=== PATIENT | male | born 1965 | race African-American/Black ===

== ENCOUNTER 2021-08-05 08:37 | Emergency (ER) | payer OTHER, SELFPAY ==
[2021-08-05 08:41] VITALS: BP 189/112; PULSE 106; RESP 20; TEMP 37; O2SAT 95
[2021-08-05 10:05] LABS: Influenza A QL RT-PCR Negative (Negative); Influenza B QL RT-PCR Negative (Negative); SARS-CoV-2 RNA PCR Negative
--- NOTE | 2021-08-05 10:17 | ED.GENADULT ---
HPI - General Adult General Chief complaint: Upper Respiratory Infection Stated complaint: congestion, sore throat Time Seen by Provider: 08/05/21 08:47 History of Present Illness HPI narrative: 56 male presented to the emergency department for evaluation of nasal congestion, and sore throat. Patient states symptoms that began approximately Friday. Patient states symptoms are worsened after he had some fried fish. Patient felt that the fried fish was abrasive. Patient has been trying [id number] medications without significant improvement. Patient does have postnasal drip and sore throat. Patient denies any associated chest pain or shortness of breath. Patient denies any nausea vomiting or diarrhea. Review of Systems Review of Systems: CONSTITUTIONAL: Denies fever, chills, or sweats. EYES: Denies visual changes, redness, or discharge. ENT: See HPI CARDIOVASCULAR: Denies chest pain, palpitations, or edema. RESPIRATORY: Denies cough or dyspnea. GASTROINTESTINAL: Denies abdominal pain, nausea, vomiting, or diarrhea. GENITOURINARY: Denies dysuria or hematuria. SKIN: Denies rash or itching. MUSCULOSKELETAL: Denies back pain, joint pain, or myalgia. NEUROLOGIC: Denies headache, numbness, or weakness. Exam Narrative: APPEARANCE: Well appearing, no pain, no distress, well-nourished. HEAD: normocephalic, atraumatic. EYES: PERRLA/EOMI, conjunctivae clear. NOSE: Nasal congestion EARS:TMS clear with good light reflex. THROAT: Mucous tonsils, no exudate, normal posterior pharynx. NECK: Supple. No edema, mild lymphadenopathy. RESPIRATORY: Airway patent, respirations nonlabored. Clear to auscultation bilaterally, no rales, rhonchi, wheezing. CARDIOVASCULAR: Regular rate and rhythm without murmurs rubs or gallops. MUSCULOSKELETAL: Moves all extremities. SKIN: Warm, dry. Normal Color Course Course Emergency Course: Patient had negative strep, negative COVID and negative influenza. Patient was updated on the results of these. Patient was also informed on the pending strep culture. Patient was educated on symptomatic treatment for home. All questions and concerns were addressed. Vital Signs Vital signs: Vital Signs Temperature 98.6 F 08/05/21 08:41 Pulse Rate 106 H 08/05/21 08:41 Respiratory Rate 20 08/05/21 08:41 Blood Pressure 189/112 H 08/05/21 08:41 Pulse Oximetry 95 08/05/21 08:41 Oxygen Delivery Room Air 08/05/21 08:41 Temperature 98.6 F 08/05/21 08:41 Pulse Rate 106 H 08/05/21 08:41 Respiratory Rate 20 08/05/21 08:41 Blood Pressure 189/112 H 08/05/21 08:41 Pulse Oximetry 95 08/05/21 08:41 Oxygen Delivery Room Air 08/05/21 08:41 Medical Decision Making Vital Signs Vital Signs: Vital Signs Temperature 98.6 F 08/05/21 08:41 Pulse Rate 106 H 08/05/21 08:41 Respiratory Rate 20 08/05/21 08:41 Blood Pressure 189/112 H 08/05/21 08:41 Pulse Oximetry 95 08/05/21 08:41 Oxygen Delivery Room Air 08/05/21 08:41 Temperature 98.6 F 08/05/21 08:41 Pulse Rate 106 H 08/05/21 08:41 Respiratory Rate 20 08/05/21 08:41 Blood Pressure 189/112 H 08/05/21 08:41 Pulse Oximetry 95 08/05/21 08:41 Oxygen Delivery Room Air 08/05/21 08:41 Lab Data Labs: Lab Results 08/05/21 Range/Units 09:07 Influenza A (RT-PCR) Negative (Negative) Influenza B (RT-PCR) Negative (Negative) SARS-CoV-2 RNA (RT-PCR) Negative Strep Screen Presumptive Negative *(Reference Range: Negative)* Discharge Plan Discharge Clinical Impression: Acute sore throat Patient Disposition: Home, Self-Care Condition: Stable Instructions: Antibiotic Form, Pharyngitis (ED) Additional Instructions: Symptomatic treatment as directed. Have close follow-up with your primary care physician. Follow-up/Referrals: PHYSICIAN NOT ON STAFF,NONSTAFF [Primary Care Provider] -
== END 2021-08-05 10:25 | disposition home or self-care (01) ==
PROVIDERS: Emergency Provider Emergency Medicine
DX: J02.9 Acute pharyngitis, unspecified (principal); Z20.822 Contact with and (suspected) exposure to COVID-19
CPT/HCPCS: 87081; 87502; 87880; 99283; C9803; U0003; U0005

== ENCOUNTER 2022-05-06 15:31 | Outpatient (CLI) | payer OTHER, SELFPAY ==
--- NOTE | ~2022-05-06 | CT_ITS ---
EXAMINATION: CT lung screening DATE: 05/06/2022 15:53 INDICATION: HX OF NICOTINE DEPENDENCE TECHNIQUE: Computed tomography (CT) of the chest was performed without intravenous contrast. Addition al 3D reconstructions utilizing coronal maximum intensity projection (MIP) were performed. Automated exposure control and iterative reconstruction technique were employed. The dose-length product was 28 4.04 mGy-cm. COMPARISON: None FINDINGS: Expected for millimeter pleural-based nodule at the posterior medial right lower lobe. 3 mm left lowe r lobe nodule. No pneumonia, pulmonary edema, pleural effusion or pneumothorax. Heart size is normal. Atherosclerotic coronary artery calcific lesions. No pericardial effusion. Thoracic aorta is normal in caliber. No pathologically enlarged thoracic lymphadenopathy. Minimal bilateral gynecomastia. Mild thoracic dextrocurvature with moderate spondylosis. IMPRESSION: 1. Lung-RADS category 2: Benign appearance or behavior. Continue annual screening with noncontrast lo w-dose chest CT in 12 months. Reviewed, dictated and finalized at [facility]. IAL PROCEDURES TECH IMPRESSION: 1. Lung-RADS category 2: Benign appearance or behavior. Continue annual screeni ng with noncontrast low-dose chest CT in 12 months.
== END 2022-05-06 15:32 | disposition home or self-care (01) ==
DX: Z12.2 Encounter for screening for malignant neoplasm of respiratory organs (principal); Z87.891 Personal history of nicotine dependence
CPT/HCPCS: 71271

== ENCOUNTER 2022-10-31 01:36 | Day surgery (SDC) | payer OTHER, SELFPAY ==
[2022-10-23 16:03] VITALS: BMI 32.3
[2022-10-31 12:04] VITALS: BP 147/102; PULSE 80; RESP 16; TEMP 36.4; O2SAT 97; BMI 32.1
--- NOTE | 2022-10-31 12:12 | WPDANESEPPF ---
Anes - Initial Pre Proc Eval Procedure: Operation Date: 10/31/22 13:00 Proposed Procedures p Colonoscopy - Adeel Bonds MD Date/Time: 10/31/22 12:12 Surgeon: Adeel Bonds MD Pre Op Diagnosis: other fecal abnormalities Patient Data Age: 57 Gender: M Height: 1.8 m Weight: 104.7 kg Last Vital Signs Temp 97.6 F 10/31/22 12:04 Pulse 80 10/31/22 12:04 Resp 16 10/31/22 12:04 BP 147/102 H 10/31/22 12:04 Pulse Ox 97 10/31/22 12:04 O2 Del Method Room Air 10/31/22 12:04 Allergies Allergy/AdvReac Type Severity Reaction Status Date / Time naproxen Allergy Intermediate Hypertensio Verified 10/31/22 12:03 n Home Medications Medication Instructions Recorded Confirmed Type amlodipine 5 mg tablet 5 mg PO DAILY 10/23/22 10/31/22 History cyclobenzaprine 10 mg tablet 10 mg PO TID PRN Spasms 10/23/22 10/31/22 History Patient hx anesthesia problems: none Family hx anesthesia problems: none Results Review: All pre-operative results and documents have been reviewed as part of the pre-operative evaluation. [facility] Social History Social History Smoking packs per day: 1 Smoking cigarettes per day: 20.0 Years smoked: 31 Smoking pack-years: 31.00 Smoking status: Current every day smoker Tobacco type: cigarettes and e-cigarettes/vaping Additional smoking assessment comments: QUIT SMOKING 2020, CURRENTLY VAPES Alcohol intake: current Substance use: never Substance use type: does not use Living arrangements: with family Spiritual care concerns: No Anes - Eval Final PreProcedure Day of Procedure 10/31/22 12:12 Patient weight: obese Heart: regular rate and rhythm Lungs: clear to auscultation Airway: Mallampati scale class II Neurological: alert and oriented Last oral intake: >/= 8 hours ASA classification: II Emergent: no Anesthetic plan: proceed Anesthesia type and monitoring: general GIVS and standard monitoring Results Review: All pre-operative results and documents have been reviewed as part of the pre-operative evaluation. Informed Consent: The patient's anesthetic plan and its attendant risks and benefits were discussed with the patient/family/POA. Questions were solicited and answers provided to the satisfaction of the patient/family/POA.
[2022-10-31] MEDS: LACTATED RINGERS 1,000 ML 150 ML IV CONT (12:20)
--- NOTE | 2022-10-31 12:53 | PM.HPGS ---
History of Present Illness History of Present Illness Consent: Risks, benefits, and alternatives have been discussed and questions answered. Patient agrees to proceed with procedure. Chief complaint: other fecal abnormalities Narrative: Jacob Gomez is a 57 year old male Who was referred for colon cancer screening. He recently performed a Cologuard test which was positive. Review of Systems Review of Systems: All systems reviewed & are unremarkable except as noted in HPI and below PMFSH Social History Social History Smoking packs per day: 1 Smoking cigarettes per day: 20.0 Years smoked: 31 Smoking pack-years: 31.00 Smoking status: Current every day smoker Tobacco type: cigarettes and e-cigarettes/vaping Additional smoking assessment comments: QUIT SMOKING 2020, CURRENTLY VAPES Alcohol intake: current Substance use: never Substance use type: does not use Living arrangements: with family Spiritual care concerns: No Meds Home Medications and Allergies Home Medications Medication Instructions Recorded Confirmed Type amlodipine 5 mg tablet 5 mg PO DAILY 10/23/22 10/31/22 History cyclobenzaprine 10 mg tablet 10 mg PO TID PRN Spasms 10/23/22 10/31/22 History Allergies Allergy/AdvReac Type Severity Reaction Status Date / Time naproxen Allergy Intermediate Hypertensio Verified 10/31/22 12:03 n Vital Signs Vital Signs - 24 hr 10/31/22 12:04 Temperature 36.4 C Pulse Rate 80 Respiratory Rate 16 Blood Pressure 147/102 H Pulse Oximetry 97 Oxygen Delivery Room Air Exam Const: General: alert Orientation/consciousness: patient oriented x3 Resp: Auscultation: clear to auscultation bilaterally Cardio: Rhythm: regular rhythm GI: GI Palp: Yes Soft to palpation and No Tenderness to palpation present (GI) Neuro: General: patient oriented x3 Assessment and Plan Assessment and plan (1) Colon cancer screening: Code(s): Z12.11 - Encounter for screening for malignant neoplasm of colon Status: Acute Assessment and Plan: Colonoscopy with possible biopsy or polypectomy or cautery or injection of substances.
[2022-10-31 13:19] VITALS: BP 118/75; PULSE 80; RESP 16; O2SAT 96
[2022-10-31 13:29] VITALS: BP 126/78; PULSE 74; RESP 17; O2SAT 96
[2022-10-31 13:39] VITALS: BP 134/82; PULSE 79; RESP 16; O2SAT 97
== END 2022-10-31 13:48 | disposition home or self-care (01) ==
PROVIDERS: Visit Provider Internal Medicine Gastroenterology
PROC: 0DJD8ZZ Inspection of Lower Intestinal Tract, Via Natural or Artificial Opening Endoscopic (ICD-10-PCS; CPT 45378; principal; 2022-10-31 13:00)
DX: Z12.11 Encounter for screening for malignant neoplasm of colon (principal); D12.4 Benign neoplasm of descending colon; K63.5 Polyp of colon; K57.30 Diverticulosis of large intestine without perforation or abscess without bleeding; R19.5 Other fecal abnormalities; F17.290 Nicotine dependence, other tobacco product, uncomplicated; E66.9 Obesity, unspecified; Z68.32 Body mass index [BMI] 32.0-32.9, adult
CPT/HCPCS: 45381; 45385; 88305; J2704; J7120

== ENCOUNTER 2023-07-02 17:09 | Outpatient (CLI) | payer OTHER, SELFPAY ==
--- NOTE | ~2023-07-02 | CT_ITS ---
EXAMINATION: CT lung screening DATE: 07/02/2023 17:26 INDICATION: Personal history of nicotine dependence TECHNIQUE: Computed tomography (CT) of the chest was performed without intravenous contrast. Automate d exposure control and iterative reconstruction technique were employed. Exam dose: 241.24 mGy-cm to yoseph exam DLP. COMPARISON: 05/06/2022 CT lung screening FINDINGS: Stable approximate 4 x 7 mm pleura-based nodule, posteromedial right lower lobe, unchanged since 05/06/2022. Stable approximately 2.5 mm close opacities in the lingula (series 4 image 54), unchanged since 023. Stable focal posteromedial left upper lobe and minimal discoid scarring, not significantly changed si nce 05/06/2022. Approximately 2 x 3.5 mm pleural-based left lower lobe nodule. Stable approximately 3 mm left lower lobe pulmonary nodule (series 4 image 70) since 05/06/2022. No pulmonary infiltrate or consolidation or significant new pulmonary mass density. Normal heart size. Coronary artery calcification. No pericardial or pleural effusion. Thoracic aortic arch calcification and calcification of the origin of the left subclavian artery. No thoracic aortic aneurysm. No hilar or mediastinal mass lesion or lymphadenopathy. Normal morphology of the adrenal glands. Diffuse hepatic skeletal hyperostosis of the thoracic spine. No suspicious osteolytic or osteoblastic lesions are noted. IMPRESSION: Lung RADS category 2: Benign appearance or behavior (less than 1% chance of malignancy) Reviewed, dictated and finalized at [facility]. Reviewed, dictated and finalized at [facility].
== END 2023-07-02 17:10 | disposition home or self-care (01) ==
LOC: ANHIMG 17:09
DX: Z12.2 Encounter for screening for malignant neoplasm of respiratory organs (principal); Z87.891 Personal history of nicotine dependence
CPT/HCPCS: 71271

== ENCOUNTER 2024-08-27 14:12 | Outpatient (CLI) | payer OTHER, SELFPAY ==
--- NOTE | ~2024-08-27 | CT_ITS ---
CT Scan of the Chest without Contrast: Clinical Indication: Lung cancer screening, nicotine dependence Technique: Contiguous sections were acquired throughout the chest without intravenous contrast. Dose reduction technique was used on this scan by utilizing automated exposure control and iterative recon struction technique. The dose-length product (DLP) was 257.43 mGy-cm. COMPARISON: 07/02/2023 Findings: There is no evidence of any significant mediastinal, hilar or axillary lymphadenopathy. The mediastin al soft tissues appear normal. There is no evidence of pleural or pericardial effusion. Stable pleural-based nodule in the medial right lower lobe (axial image 75). Stable tiny lingular nod ules (axial image 59). Stable 2 mm pleural nodule (axial image 79). Images through the upper abdomen reveal no abnormalities. Impression: Lung RADS 2: Benign appearance. 12 month follow-up screening CT advised. Reviewed, dictated and finalized at [facility]. Impression: Lung RADS 2: Benign appearance. 12 month follow-up screening CT advised.
== END 2024-08-27 14:13 | disposition home or self-care (01) ==
DX: Z12.2 Encounter for screening for malignant neoplasm of respiratory organs (principal); Z87.891 Personal history of nicotine dependence
CPT/HCPCS: 71271